=== PATIENT | female | born 1990 | race Caucasian/White ===

== ENCOUNTER 2018-05-20 04:16 | Emergency (ER) | payer SELFPAY ==
[2018-05-20] MEDS ORDERED: Tetracaine 0.5% OPTH.SOL 15ML* BTL ONE (04:37)
[2018-05-20] MEDS ORDERED: Fluorescein Sod TOPICAL 0.6* 0.6 MG TEST OPHTHALMIC ONE (04:37)
[2018-05-20] MEDS ORDERED: Ciprofloxacin 0.3% OPTH.SOL* 2.5 ML BTL RIGHT EYE ONE (04:56)
[2018-05-20] MEDS ORDERED: oxyCODONE/Acetamin 5/325 MG* TAB PO ONE (05:07)
--- NOTE | 2018-05-20 06:27 | ED ---
Citlali Stark Rebecca, scribed for Mundo Boateng on 05/20/18 at 0439 . Complex/Multi-Sys Presentation - HPI Summary HPI Summary: Pt is a 28 y/o F who presents to ED c/o R eye pain and visual changes. Pt reports that yesterday she began experiencing "cloudy" vision after which she removed her contact which did not improve symptoms. Then, this morning she woke up with pain and tears in the right eye. On triage, pain is moderate ranked 7/10 , aggravated by trying to open the eye. Tried flushing the eye with water which did not improve sx. Confirms that she is not currently wearing contacts. - History Of Current Complaint Chief Complaint: EDEyeProblem Time Seen by Provider: 05/20/18 04:22 Hx Obtained From: Patient Onset/Duration: Still Present Severity Currently: Moderate - 7/10 Location: Pain At: - R eye Aggravating Factor(s): Trying to open eye Alleviating Factor(s): Nothing Associated Signs And Symptoms: Positive: Other - Vision changes - "cloudy" - Allergies/Home Medications Allergies/Adverse Reactions: Allergies Allergy/AdvReac Type Severity Reaction Status Date / Time No Known Allergies Allergy Verified 05/20/18 04:24 Home Medications: Home Medications Lo Loestrin Fe (NF) 1 tab PO DAILY 05/20/18 [History Confirmed 05/20/18] PMH/Surg Hx/FS Hx/Imm Hx Endocrine/Hematology History: Denies: Hx Diabetes Cardiovascular History: Denies: Hx Coronary Artery Disease, Hx Hypertension Infectious Disease History: No Infectious Disease History: Denies: Traveled Outside the [place] in Last 30 Days - Family History Known Family History: Positive: Hypertension - Social History Alcohol Use: None Substance Use Type: Reports: None Smoking Status (MU): Never Smoked Tobacco Review of Systems Negative: Fever Positive: Other - "cloudy" vision, R eye pain and tearing All Other Systems Reviewed And Are Negative: Yes Physical Exam - Summary Physical Exam Summary: Appearance: Well appearing, no pain distress Skin: warm, dry, reflects adequate perfusion Head/face: normal Eyes: EOMI, VINCE, right conjunctiva is erythematous and under fluorescein stain , she has a 90% corneal abrasion ENT: normal Neck: supple, non-tender Respiratory: CTA, breath sounds present Cardiovascular: RRR, pulses symmetrical Abdomen: non-tender, soft Bowel: present Musculoskeletal: normal, strength/ROM intact Neuro: normal, sensory motor intact, A&Ox3 Triage Information Reviewed: Yes Vital Signs On Initial Exam: Initial Vitals Pulse BP Pulse Ox 69 136/76 98 05/20/18 04:20 05/20/18 04:20 05/20/18 04:20 Vital Signs Reviewed: Yes Diagnostics - Vital Signs Vital Signs Temp Pulse Resp BP Pulse Ox 05/20/18 04:22 97.9 F 78 16 136/76 98 05/20/18 04:20 69 136/76 98 - Laboratory Lab Statement: Any lab studies that have been ordered have been reviewed, and results considered in the medical decision making process. Re-Evaluation - Re-Evaluation First Eval Re-Evaluation Time: 06:07 Comment: Continues to be in pain, will consult opthalmology. Second Eval Re-Evaluation Time: 06:20 Comment: Continues to be in pain, discussed D/C and follow up with Dr. Blair. Complex Multi-Symp Course/Dx Assessment/Plan: Pt is a 28 y/o F who presents to ED c/o R eye pain and visual changes beginning yesterday with "cloudy" vision after which she removed her contact which did not improve symptoms. Then, this morning she woke up with pain and tears in the right eye. On triage, pain is moderate ranked 7/10, aggravated by trying to open the eye. Tried flushing the eye with water which did not improve sx. Physical exam shows under fluorescein stain, she has a 90% corneal abrasion. In the ED course pt was given Cipro eye drops and Percocet. Discussed care of pt with Dr. Blair (opthalmology) who would like to see the pt in his office at 8 a.m. today. She will be D/C to home with Dx of corneal abrasion with a follow up with Dr. Blair. Pt is agreeable with this plan. - Diagnoses Provider Diagnoses: Corneal abrasion - Physician Notifications Discussed Care Of Patient With: Iraj Blair Time Discussed With Above Provider: 06:16 Instructed by Provider To: Other - Would like the pt to be at his office at 8 a.m. today to be evaluated. Discharge - Sign-Out/Discharge Documenting (check all that apply): Discharge/Admit/Transfer - Discharge - Discharge Plan Condition: Stable Disposition: HOME Patient Education Materials: Corneal Abrasion (ED) Referrals: No Primary Care Phys,NOPCP [Primary Care Provider] - Iraj Blair MD [Medical Doctor] - (Follow up at Dr. Blair's office this morning at 8 a.m. ) [facility] [place] PHYSICIAN REFERRAL [Outside] - 3 Days Additional Instructions: RETURN TO ED FOR ANY NEW OR WORSENING SYMPTOMS. The documentation as recorded by the Citlali meier Rebecca accurately reflects the service I personally performed and the decisions made by Tasneem mcdaniel Emmanuel.
[2018-05-20 06:55] VITALS: BP 121/71
== END 2018-05-20 06:55 | disposition home or self-care (01) ==
LOC: ED 04:16
DX: S05.01XA Injury of conjunctiva and corneal abrasion without foreign body, right eye, initial encounter (principal); X58.XXXA Exposure to other specified factors, initial encounter; Y92.9 Unspecified place or not applicable
CPT/HCPCS: 99282; A9270-GY